=== PATIENT | female | born 1940 | race Caucasian/White ===

== ENCOUNTER 2023-04-25 16:06 | Emergency (ER) | payer MEDICARE, BC, SELFPAY ==
--- NOTE | ~2023-04-25 | XR_ITS ---
EXAMINATION: XR chest 2V DATE: 04/25/2023 17:39 INDICATION: Cough TECHNIQUE: PA and lateral views of the chest were obtained. COMPARISON: None FINDINGS: The lungs are clear with no focal airspace opacities, pulmonary edema, pleural effusion or pneumothor ax. The cardiomediastinal silhouette is normal. Mild thoracolumbar dextroscoliosis with partially vis ualized lumbar levorotoscoliosis. Mild to moderate thoracic and severe lumbar spondylosis. IMPRESSION: 1. No acute cardiopulmonary disease. Reviewed, dictated and finalized at location A. ED WIRE MACHINE OPERATOR
--- NOTE | ~2023-04-25 | CT_ITS ---
EXAMINATION: CT brain wo con DATE: 04/25/2023 17:36 INDICATION: Headache. Hypertension. TECHNIQUE: Computed tomography (CT) of the head was performed without intravenous contrast. Sagittal and coronal reconstructions were performed. The mA was adjusted according to patient size. Iterative reconstruction technique was employed. The dose-length product was 605.33 mGy-cm. COMPARISON: None FINDINGS: No acute intracranial hemorrhage, acute infarction or abnormal extra axial fluid collection. There is mild scattered white matter hypoattenuation consistent with chronic small vessel ischemic disease. V entricles are normal and symmetric. No mass/mass effect. Intracranial calcified cerebral atherosclero sis is noted. Changes of bilateral intraocular lens replacement. The orbits, paranasal sinuses and ma stoid air cells are normal. IMPRESSION: 1. No acute intracranial process. 2. Mild scattered white matter hypoattenuation consistent with chronic small vessel ischemic disease. Reviewed, dictated and finalized at location A. INFRASTRUCTURE PROJECT MANAGER IMPRESSION: 1. No acute intracranial process. 2. Mild scattered white matter hypoattenuation consistent with chronic small ve ssel ischemic disease.
[2023-04-25 16:16] VITALS: BP 178/69; PULSE 77; RESP 18; TEMP 36.4; O2SAT 100
--- NOTE | 2023-04-25 17:21 | ECG_ITS ---
Measurements Intervals [place] Rate: 59 P: 46 [place]: 197 QRS: -25 QRSD: 86 T: 16 QT: 420 QTc: 418 Interpretive Statements SINUS BRADYCARDIA BORDERLINE LEFT AXIS DEVIATION [QRS AXIS < -20] BORDERLINE ECG NO PREVIOUS ECG AVAILABLE FOR COMPARISON Electronically Signed On 04-26-2023 13:54:55 PURLER by Miller Wilson M.D.
--- NOTE | 2023-04-25 17:27 | ED.RECABL ---
HPI - Recheck/Abnormal Lab/Rx General Chief Complaint: Recheck/Abnormal Lab/Rx Stated Complaint: Bp elevated with sore throat Time Seen by Provider: 04/25/23 17:06 History of Present Illness HPI narrative: 83-year-old female with a history of hypertension and hyperlipidemia reports for evaluation from urgent care for elevated blood pressure. Patient was seen in urgent care today for a frontal headache, sore throat, nasal congestion and mild cough for the past 2 days. She tested negative for COVID and strep was sent to the emergency department when her blood pressure was found to be 175 systolic, then 190 systolic on recheck. The patient states she takes amlodipine her blood pressure has been taking it as prescribed. Her PCP, Dorothy Ivey, manages her BP. The patient denies chest pain, shortness of breath, abdominal pain, nausea, vomiting, diarrhea, Dysuria or hematuria. She does report a low-grade fever of 100? at home and tenderness over her maxillary sinuses. Patient states she normally does not get headaches this is abnormal for her. Denies vision changes, syncope, head injury or trauma, focal numbness or weakness. She has been taking Tylenol and ibuprofen with improvement in symptoms. Related Data Home Medications Medication Instructions Recorded Confirmed alendronate 70 mg tablet mg PO 04/25/23 04/25/23 amlodipine 10 mg-benazepril 20 mg cap 04/25/23 capsule fenofibrate 160 mg tablet mg 04/25/23 fluticasone propionate 50 intranasal 04/25/23 mcg/actuation nasal spray,suspension simvastatin 40 mg tablet mg 04/25/23 Allergies Allergy/AdvReac Type Severity Reaction Status Date / Time Sulfa (Sulfonamide Allergy Rash Verified 04/25/23 18:56 Antibiotics) thimerosal Allergy Rash Verified 04/25/23 18:55 Review of Systems Review of Systems: CONSTITUTIONAL: See HPI EYES: Denies visual changes, redness, or discharge. ENT: see HPI CARDIOVASCULAR: Denies chest pain, palpitations, or edema. RESPIRATORY: see HPI GASTROINTESTINAL: Denies abdominal pain, nausea, vomiting, or diarrhea. GENITOURINARY: Denies dysuria or hematuria. SKIN: Denies rash or itching. MUSCULOSKELETAL: Denies back pain, joint pain, or myalgia. NEUROLOGIC: see HPI PSYCHIATRIC: Denies anxiety or depression. Exam Narrative: GENERAL: Well-appearing, well-nourished, and in no acute distress. Patient resting comfortably in exam bed. She is pleasant and conversational. HEAD: Normocephalic, atraumatic. EYES: PERRLA and EOMI. ENT: Nares clear, no rhinorrhea or epistaxis. Mucous membranes moist. Bilateral TMs without erythema or bulging. normal canals. Mild Tenderness over the maxillary sinuses. Posterior pharynx without erythema. No tonsillar hypertrophy. Uvula is midline. NECK: Supple. CHEST: Clear to auscultation. No respiratory distress. HEART: Regular rate and rhythm. No murmur heard. Normal peripheral pulses. ABDOMEN: Soft, nontender, nondistended, normal active bowel sounds. EXTREMITIES: Normal range of motion. No edema. SKIN: Warm, dry, no rash. NEURO: No focal deficits. Alert and oriented x3. cranial nerves 2-12 intact. Strength 5/5 in BUE and BLE. Sensation intact throughout. Normal [id number]. No pronator drift. Course Vital Signs Vital signs: Vital Signs Temperature 97.6 F 04/25/23 16:16 Pulse Rate 77 04/25/23 16:16 Respiratory Rate 18 04/25/23 16:16 Blood Pressure 178/69 H 04/25/23 16:16 Pulse Oximetry 100 04/25/23 16:16 Oxygen Delivery Room Air 04/25/23 16:16 Temperature 97.6 F 04/25/23 16:16 Pulse Rate 77 04/25/23 16:16 Respiratory Rate 18 04/25/23 16:16 Blood Pressure 178/69 H 04/25/23 16:16 Pulse Oximetry 100 04/25/23 16:16 Oxygen Delivery Room Air 04/25/23 16:16 MDM - Recheck/Abnormal Lab/Rx MDM Narrative Medical decision making narrative: 83-year-old female with history of hypertension and hyperlipidemia reports for evaluat
[2023-04-25] MEDS: KETOROLAC 15 MG/ML VIAL (*BKC) IV PUSH (18:05)
[2023-04-25] MEDS: diphenhydrAMINE HCl INJ 50 MG/ML VIAL 12.5 MG IV PUSH (18:08)
[2023-04-25] MEDS: PROCHLORPERAZINE EDISYLATE 10 MG/2 ML VIAL IV PUSH (18:11)
[2023-04-25 18:20] LABS: Basophils Percent Auto 0.4 % (0.2-1.2); Eosinophils Absolute Auto 0.2 K/mm3 (0-0.3); Eosinophils Percent Auto 3.3 % (0-4.4); Hematocrit 38.1 % (37.0-47.0); Hemoglobin 12.7 g/dL (12.0-15.0); Immature Granulocyte Absolute 0.01 K/mm3 (0.00-0.031); Immature Granulocyte Percent A 0.2 % (0-0.5); Lymphocytes Absolute Auto 0.91 K/mm3 (0.9-3.2); Mean Corpuscular HGB Conc 33.3 g/dl (32-36); Mean Corpuscular Hemoglobin 29.9 pg (26-34); Mean Corpuscular Volume 89.6 fl (80-100); Mean Platelet Volume 9.2 fl (7.4-10.4); Monocytes Absolute Auto 0.9 K/mm3 (0.1-0.6); Monocytes Percent Auto 15.8 % (2.6-8.5); Neutrophils Absolute Auto 3.7 K/mm3 (1.3-6.7); Neutrophils Percent Auto 64.3 % (45.5-73.1); Platelet Count Result 285 k/mm3 (150-375); Red Blood Count 4.25 M/mm3 (4.2-5.4); Red Cell Distribution Width 15.9 % (11.5-14.5); White Blood Count 5.7 K/mm3 (4.5-10.0)
[2023-04-25 18:31] LABS: Alanine Aminotransferase 19 U/L (6-35); Albumin Level 4.7 g/dL (3.5-5.1); Alkaline Phosphatase 43 U/L (38-126); Anion Gap 9 mmol/L (8-16); Aspartate Amino Transferase 37 U/L (14-36); Bilirubin,Total 0.5 mg/dL (0.2-1.3); Blood Urea Nitrogen 18 mg/dL (7-17); Calcium 10.2 mg/dL (8.4-10.2); Carbon Dioxide 25 mmol/L (22-30); Chloride 107 mmol/L (98-107); Estimated CRCL calculation 43 ml/min; Estimated Glomerular Filt Rate > 60; Glucose 98 mg/dL (65-110); Potassium 3.9 mmol/L (3.4-5.0); Sodium 141 mmol/L (137-145)
[2023-04-25 19:25] LABS: Influenza A QL RT-PCR Negative (Negative); Influenza B QL RT-PCR Negative (Negative); RSV RNA, RT-PCR Negative (Negative); SARS-CoV-2 RNA PCR Positive (Negative)
[2023-04-25 19:30] LABS: Appearance Urine Clear (Clear); Bacteria Urine None Seen /hpf; Bilirubin Urine Negative (Negative); Blood Urine Negative (Negative); Color Urine Yellow (Yellow); Glucose Urine UA Negative (Negative); Ketones Urine Negative (Negative); Leukocyte Esterase Ur 1+ LEU/UL (Negative); Need Manual Microscopic Reviewed; Nitrate Urine Negative (Negative); Non Pathogenic Casts 0-2; Protein Urine Negative (Negative); RBC Urine 0-2 /hpf (0-2); Specific Grav Ur 1.007 (1.001-1.035); Squamous Epithelial Cell Urine None seen /hpf (Few); Urobilinogen Urine 0.2 mg/dL (<2.0); WBC Urine 0-5 /hpf
[2023-04-25 19:31] LABS: Add Urine Microscopic? YES
[2023-04-25 19:50] VITALS: BP 150/80; PULSE 69; RESP 15; TEMP 36.6; O2SAT 99
== END 2023-04-25 19:52 | disposition home or self-care (01) ==
PROVIDERS: Emergency Provider Physician Assistant; PCP Family Medicine
DX: U07.1 COVID-19 (principal); I10 Essential (primary) hypertension; E78.5 Hyperlipidemia, unspecified; G44.209 Tension-type headache, unspecified, not intractable; R00.1 Bradycardia, unspecified; R94.31 Abnormal electrocardiogram [ECG] [EKG]
CPT/HCPCS: 36415; 70450; 71046; 80053; 81001; 85025; 87637; 93005; 96374; 96375; 99284; J0780; J1200; J1885

== ENCOUNTER 2024-08-24 10:54 | Outpatient (CLI) | payer MEDICARE, BC, SELFPAY ==
[2024-08-24 11:28] LABS: Basophils Absolute Auto 0.1 K/mm3 (0.0-0.1); Basophils Percent Auto 0.9 % (0.2-1.2); Eosinophils Absolute Auto 0.1 K/mm3 (0-0.3); Eosinophils Percent Auto 1.9 % (0-4.4); Hematocrit 38.1 % (37.0-47.0); Hemoglobin 12.2 g/dL (12.0-15.0); Immature Granulocyte Absolute 0.01 K/mm3 (0.00-0.031); Immature Granulocyte Percent A 0.2 % (0-0.5); Lymphocytes Absolute Auto 1.07 K/mm3 (0.9-3.2); Lymphocytes Percent Auto 18.6 % (18.3-44.2); Mean Corpuscular Hemoglobin 30.4 pg (26-34); Mean Platelet Volume 9.4 fl (7.4-10.4); Monocytes Absolute Auto 0.7 K/mm3 (0.1-0.6); Monocytes Percent Auto 11.3 % (2.6-8.5); Neutrophils Absolute Auto 3.9 K/mm3 (1.3-6.7); Neutrophils Percent Auto 67.1 % (45.5-73.1); Platelet Count Result 272 k/mm3 (150-375); Red Blood Count 4.01 M/mm3 (4.2-5.4); Red Cell Distribution Width 14.1 % (11.5-14.5); White Blood Count 5.8 K/mm3 (4.5-10.0)
[2024-08-24 11:42] LABS: Hemoglobin A1C 5.2 % (<5.7)
[2024-08-24 11:43] LABS: Alanine Aminotransferase 18 U/L (6-35); Albumin Level 4.5 g/dL (3.5-5.1); Alkaline Phosphatase 34 U/L (38-126); Anion Gap 8 mmol/L (4-12); Aspartate Amino Transferase 28 U/L (14-36); Bilirubin,Total 0.4 mg/dL (0.2-1.3); Blood Urea Nitrogen 20 mg/dL (7-17); Calcium 9.6 mg/dL (8.4-10.2); Carbon Dioxide 28 mmol/L (22-30); Chloride 105 mmol/L (98-107); Cholesterol 134 mg/dL (0-200); Estimated Glomerular Filt Rate > 60; Glucose 105 mg/dL (65-110); HDL Direct 58 mg/dL; Potassium 3.9 mmol/L (3.4-5.0); Sodium 141 mmol/L (137-145); Triglycerides 148 mg/dL (<150)
[2024-08-24 11:55] LABS: LDL Cholesterol Direct 49 mg/dL
[2024-08-24 11:58] LABS: Vitamin D 25 Hydroxy 50.9 ng/mL
--- OUTSIDE RECORDS SUMMARY | 2024-08-24 12:33 | XMS_ITS | Referral Summary ---
Author Organization [facility] [address] [place] [address] Care Team Providers Care Welding Machine Setter Name Role Phone Leyla Montanez NP Primary Care Provider [phone] Encounters Date Type Department Care Team Description 07/20/2024 8:30 AM CDT Office Visit [facility] Card[facility] [address] [place] [address] Shara Ledesma MD Nonrheumatic aortic valve stenosis (Primary Dx); Primary hypertension; Mixed hyperlipidemia from Last 3 Months Allergies Active Allergy Reactions Criticality Noted Date Comments Celecoxib Hives Medium 12/13/2017 Sulfa (Sulfonamide Antibiotics) Unknown Medium Thimerosal Unknown Medium Medications ascorbic acid, vitamin C, 500 mg capsule Take by mouth. Acti ve vitamin b complex tablet Take by mouth. Active fenofibrate (TRIGLIDE) 160 mg tablet 8 Active flaxseed oil oil Take by mouth. Activ e fluticasone propionate (FLOVENT HFA) 44 mcg/actuation inhaler Administer into each nostril. Active simvastatin (ZOCOR) 40 mg tablet 8 Active vitamins A,C,E-zinc-srinivasan er (ICAPS) 14,320-226-200 kelm-qa-htvz capsule Take by mouth. 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 Social History Tobacco Use Types Packs/Day Years Used Date Smoking Tobacco: Former Smokeless Tobacco: Never Alcohol Use Standard Drinks/Week Comments No 0 (1 standard drink = 0.6 oz pur e alcohol) Comments Unknown Sex and Gender Information Value Date Recorded Sex Assigned at Not on file Legal Sex Female 12:22 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 Gender Identity Not on file Sexual Orientation Not on file Last Filed Vital Signs Vital Sign Reading Time Taken Comments Blood Pressure 134/72 07/20/2024 8:21 AM CDT Pulse 67 07/20/2024 8:21 AM CDT Temperature 36.5 C (97.7 F) 05/16/2020 8:08 AM 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 Respiratory Rate 16 05/02/2018 8:24 AM 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 Oxygen Saturation 98% 07/20/2024 8:21 AM CDT Inhaled Oxygen Concentration - - Weight 63.1 kg (139 lb 3.2 oz) 07/20/2024 8:21 A M CDT Height 167.6 cm (5' 6 ) 07/20/2024 8:21 AM CDT Body Mass Index 22.47 07/20/2024 8:21 AM CDT Plan of Treatment Not on file Insurance MEDICARE [facility] MEDICARE [facility] Care Teams Welding Machine Setter Relationship Specialty Start Date End Date Leyla Montanez NP [address] [place] [address] PCP - General Family Medicine 07/20/24
--- OUTSIDE RECORDS SUMMARY | 2024-08-24 12:33 | XMS_ITS | Encounter Summary ---
Author Organization [facility] Care Team Providers Care Chief Resource Officer Name Role Phone Merry Walker MD Primary Care Provide r Dorothy Ivey MD Primary Care Provider + Leyla Montanez NP Primary Care Provider [phone] Encounter Details Date Type Department Care Team (Latest Contact Info) Description 01/27/2018 Orders Only [facility] ProviderKeiry MD [address] [place] [address] Social History Tobacco Use Types Packs/Day Years Used Date Smoking Tobacco: Former Comments Unknown Sex and Gender Information Value Date Recorded Sex Assigned at Not on file Legal Sex Female 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 us Historical Provider Final Res ult documented in this encounter Visit Diagnoses Not on filedocumented in this encounter Care Teams Chief Resource Officer Relationship Specialty Start Date End Date Merry Walker MD [address] [place] [address] PCP - General 09/04/16 05/24/19 Dorothy Ivey MD [address] [place] [address] PCP - General Family Medicine 05/25/19 07/19/24 Leyla Montanez NP [address] [place] [address] [place] [address] PCP - General Family Medicine 07/20/24 documented as of this encounter
--- OUTSIDE RECORDS SUMMARY | 2024-08-24 12:33 | XMS_ITS | Clinical Summary ---
Author Organization [facility] Address [address] [address] Phone Care Team Providers Care Car Rental Clerk Name Role Phone Merry Walker MD Primary Care Provide r Allergies Active Allergy Reactions Criticality Noted Date Comments Celecoxib Hives 12/13/2017 Sulfa Antibiotics Hives 12/13/2017 Thimerosal (Thiomersal) Other (see Comments) Swelling and watery eyes Medications Amlodipine Besy-Benazepril HCl 10-20 MG Capsule Take 1 Cap by mouth daily. 10/16/2017 Active fenofibrate 160 MG Tablet Take 160 mg by mouth. 10/16/2017 Active simvastatin (ZOCOR) 40 MG Tablet 10/16/2017 Active Fluticasone Propionate (FLONASE NA) by Nasal route. Active B Complex Vitamins (B COMPLEX PO) Take by mouth. Active Ascorbic Acid (VITAMIN C PO) Take by mouth. Active Flaxseed, Linseed, (FLAX SEED OIL PO) Take by mouth. Active Multiple Vitamins-Mineral s (ICAPS AREDS 2 PO) Take by mouth. Active Family History Medical History Relation Name Comments Cancer Father colon Heart Attack Father Stroke Mother Cancer Paternal Aunt breast Relation Name Status Comments Father Mother Paternal Aunt Social History Tobacco Use Types Packs/Day Years Used Date Smoking Tobacco: Never Smokeless Tobacco: Never Alcohol Use Standard Drinks/Week Comments Yes 0 (1 standard drink = 0.6 oz pur e alcohol) rarely Comments Unknown Sex and Gender Information Value Date Recorded Sex Assigned at Not on file Legal Sex Female 12:39 AM CDT Gender Identity Not on file Sexual Orientation Not on file Last Filed Vital Signs Vital Sign Reading Time Taken Comments Blood Pressure 119/81 01/27/2018 6:35 AM CDT Pulse 64 01/27/2018 5:21 AM CDT Temperature 36 C (96.8 F) 01/27/2018 6:35 AM CDT Respiratory Rate 16 01/27/2018 6:35 AM CDT Oxygen Saturation 95% 01/27/2018 6:35 AM CDT Inhaled Oxygen Concentration - - Weight 68.9 kg (152 lb) 01/27/2018 5:21 AM CDT Height 167.6 cm (5' 6 ) 01/27/2018 5:21 AM CDT Body Mass Index 24.53 01/27/2018 5:21 AM CDT Plan of Treatment Health Maintenance Due Date Last Done Comments DEXA Bone Density 1940 Hepatitis C Virus (HCV) Screening 1940 TdaP Immunization 1940 Pneumococcal Immunization (5 0+ years) (1 of 1 - PCV) 02/26/1992 Zoster Immunization (1 of 2) 02/26/1992 Respiratory Syncytial Virus (RSV) Immunization (Adult) (1 - 1-dose 75+ series) 2017 Influenza Immunization (#1) 2024 SARS-COV-2 Immunization ( - season) 2024 Hepatitis B Immunization Aged Out No longer eligible based on patient's age to complete this topic Meningococcal Immunization (ACWY) Aged Out No longer eligible based on patient's age to complete this topic Rotavirus Immunization Aged Out No lo nger eligible based on patient's age to complete this topic Insurance MEDICARE [facility] Care Teams Car Rental Clerk Relationship Specialty Start Date End Date Merry Walker MD [address] [address] PCP - General Family Medicine 12/10/17
--- OUTSIDE RECORDS SUMMARY | 2024-08-24 12:33 | XMS_ITS | Encounter Summary ---
Author Organization [facility] Care Team Providers Care Barkeep Name Role Phone Merry Walker MD Primary Care Provide r Dorothy Ivey MD Primary Care Provider + Leyla Montanez NP Primary Care Provider [phone] Encounter Details Date Type Department Care Team (Latest Contact Info) Description 12/03/2017 Orders Only [facility]INCON[facility] Provider, MD Keiry [address] [place] [address] Social History Tobacco Use Types Packs/Day Years Used Date Smoking Tobacco: Former Comments Unknown Sex and Gender Information Value Date Recorded Sex Assigned at Not on file Legal Sex Female 12:22 AM ADVISOR 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 us Historical Provider Final Res ult documented in this encounter Visit Diagnoses Not on filedocumented in this encounter Care Teams Barkeep Relationship Specialty Start Date End Date Merry Walker MD [address] [place] [address] PCP - General 09/04/16 05/24/19 Dorothy Ivey MD [address] [place] [address] PCP - General Family Medicine 05/25/19 07/19/24 Leyla Montanez NP [address] [place] [address] [place] [address] PCP - General Family Medicine 07/20/24 documented as of this encounter
--- OUTSIDE RECORDS SUMMARY | 2024-08-24 12:33 | XMS_ITS | Data Portability ---
Author Organization [place] - [facility] [employer], Main Office Address [address] [place] [address] Care Team Providers Care Neck Band Maker Name Role Phone RAYMON IVEY Primary Care Provider RAYMON IVEY Referring Provider [phone] Assessment No assessment recorded. Plan of Treatment Reminders Order Date Submit Date Provider Last Modified By Organization Details Last Modified Time Details Appointments Follow Up 30 2024 01:00P Abdulkadir Montanez NP Not available Not available Not available Lab HbA1c (hemoglob in A1c), blood [address] [place] [address] (Lab), [address] [place] [address], [id number], 08/20/2024 08:40:02 vitamin D, 25-hydrox y, total, serum [address] [place] [address] (Lab), [address] [place] [address], [id number], 08/20/2024 08:40:01 CBC w/ auto diff [address] [place] [address] (Lab), [address] [place] [address], [address], 08/20/2024 08:40:02 lipid panel, serum [address] [place] [address] (Lab), [address] [place] [address], [address], 08/20/2024 08:40:01 hepatic function panel, serum [address] [place] [address] (Lab), [address] [place] [address], [address], 08/20/2024 08:40:02 CMP, serum or plasma 2024 025 [facility] (Lab), [address], [place], [address], 08/20/2024 08:40:02 glycohemo globin, total, blood [address] (Lab), [address] [place], [address], 03/17/2024 08:19:34 CMP, serum or plasma [address] (Lab), [address] [place], [address], 03/17/2024 08:19:34 CBC w/ auto diff [address] (Lab), [address] [place], [address], 03/17/2024 08:19:34 vitamin D3, 25-hydrox y, serum 2023 024 [facility] (Lab), [address] [place], [address], 07/15/2023 21:20:13 CBC w/ auto diff 2023 024 [facility] (Lab), [address] [place], [address], 07/15/2023 19:37:15 BMP, serum or plasma 2023 024 [facility] (Lab), [address] [place], [address], 07/15/2023 20:47:07 lipid panel, serum 2023 024 [facility] (Lab), [address] [place], [address], 07/15/2023 20:47:11 hepatic function panel, serum 2023 024 [facility] (Lab), [address] [place], [address], 07/15/2023 20:47:16 Referral orthopedi c surgeon referral - Please call patient to schedule an appointme nt. Thank you. 2023 024 [email or web address] [facility], [address], [place], [address], 05/11/2024 13:10:25 physical therapist referral - right shoulder/ arm pain, limited rom/stren gth Please call pt to schedule [address] [facility], [address], [place], [address], 06/05/2024 08:30:47 Procedures None recorded. Surgeries None recorded. Imaging None recorded. Medication Orders amlodipin e 10 mg-benaze pril 40 mg capsule 2024 025 [email or web address] [facility] [address], [place], [address], 08/03/2024 15:24:44 triamcino lone acetonide 0.1 % topical cream 2023 024 ABILIO [facility] [address], [place], [address], 03/10/2024 16:19:31 prednison e 20 mg tablet 2023 024 [email or web address] [facility] [address], [address], 08/03/2024 14:58:43 Patient TargetsNo targets recorded. Patient Instructions Encounter Date Encounter Id Patient Instructions Last Modified By Organization Details Last Modified Time 08/03/2024 [id number] dementia rating scale-2* ABILIO Not available 08/04/2024 10:24:24 multi-dimensiona l health assessment questionnaire* ABILIO Not available 08/04/2024 10:24:30 care plan* [email or web address] Not available 07/12 15:24:40 advance directives: care instructions [email or web address] Not available 08/03/2024 15:24:39 advance care planning: care instructions Not available 08/03/2024 15:24:39 [place] Advance Directives [email or web address] Not available 08/03/2024 15:24:39 Reason for Referral Orthopedic Surgeon Referral for Pain of right shoulder joint chronic shoulder pain Please call patient to schedule an appointment. Thank you. Referring Physician: Sloan Villa [facility] Kaleb, Encounter Date: 03/10/2024 Physical Therapist Referral for Pain of right shoulder joint right shoulder/arm pain, limited rom/strength right shoulder/arm pain, limited rom/strength Please call pt to schedule Referring Physician: Sloan Villa [facility] Kaleb, Encounter Date: 03/10/2024 Results Created Date Observation Date Name Description Value Unit Range Abnormal Flag Note LastModifiedBy Organization Detail LastModifiedTime 07/15/19 24 07/15/2023 CBC/C OMPLE TE BLD COUNT W/DIF F white blood cells 8.1 x10'3 /uL 4.2-10 .8 Not Available [facility] (Lab) [address] [place], [address], 07/15/2023 19:37:15 07/15/19 24 07/15/2023 CBC/C OMPLE TE BLD COUNT W/DIF F red blood cells 4.30 x10'6 /uL 3.80-5 .20 Not Available [facility] (Lab) [address] [place], [address], 07/15/2023 19:37:15 07/15/19 24 07/15/2023 CBC/C OMPLE TE BLD COUNT W/DIF F hemoglobin 13.4 g/dL 12.0-1 5.6 Not Available [facility] (Lab) [address] [place], [address], 07/15/2023 19:37:15 07/15/19 24 07/15/2023 CBC/C OMPLE TE BLD COUNT W/DIF F hematocrit 40.4 % 35.7-4 5.7 Not Available [facility] (Lab) [address] [place], [address], 07/15/2023 19:37:15 07/15/19 24 07/15/2023 CBC/C OMPLE TE BLD COUNT W/DIF F mean red cell volume 94.0 fL 82.0-9 9.0 Not Available [facility] (Lab) [address] [place], [address], 07/15/2023 19:37:15 07/15/19 24 07/15/2023 CBC/C OMPLE TE BLD COUNT W/DIF F mean red cell hemoglobin 31.2 pg 27.0-3 3.0 Not Available [facility] (Lab) [address] [place], [address], 07/15/2023 19:37:15 07/15/19 24 07/15/2023 CBC/C OMPLE TE BLD COUNT W/DIF F mean RBC HGB concentratio n 33.2 g/dL 31.0-3 6.0 Not Available [facility] (Lab) [address] [place], [address], 07/15/2023 19:37:15 07/15/19 24 07/15/2023 CBC/C OMPLE TE BLD COUNT W/DIF F red cell distribution width 15.0 % 11.8-1 5.5 Not Available [facility] (Lab) [address] [place], [address], 07/15/2023 19:37:15 07/15/19 24 07/15/2023 CBC/C OMPLE TE BLD COUNT W/DIF F platelets 303 x10'3 /uL 150-40 0 Not Available [facility] (Lab) [address] [place], [address], 07/15/2023 19:37:15 07/15/19 24 07/15/2023 CBC/C OMPLE TE BLD COUNT W/DIF F mean platelet volume 10.4 fL 9.0-12 .4 Not Available [facility] (Lab) [address] [place], [address], 07/15/2023 19:37:15 07/15/19 24 07/15/2023 CBC/C OMPLE TE BLD COUNT W/DIF F neutrophils 72.1 % 39.0-7 2.0 high Not Available [facility] (Lab) [address] [place], [address], 07/15/2023 19:37:15 07/15/19 24 07/15/2023 CBC/C OMPLE TE BLD COUNT W/DIF F lymphocytes 16.4 % 16.0-4 7.0 Not Available [facility] (Lab) [address] [place], [address], 07/15/2023 19:37:15 07/15/19 24 07/15/2023 CBC/C OMPLE TE BLD COUNT W/DIF F monocytes 9.4 % 5.0-12 .0 Not Available [facility] (Lab) [address] [place], [address], 07/15/2023 19:37:15 07/15/19 24 07/15/2023 CBC/C OMPLE TE BLD COUNT W/DIF F eosinophils 1.5 % 1.0-7. 0 Not Available [facility] (Lab) [address] [place], [address], 07/15/2023 19:37:15 07/15/19 24 07/15/2023 CBC/C OMPLE TE BLD COUNT W/DIF F basophils 0.4 % 0.0-2. 0 Not Available [facility] (Lab) [address] [place], [address], 07/15/2023 19:37:15 07/15/19 24 07/15/2023 CBC/C OMPLE TE BLD COUNT W/DIF F immature granulocytes 0.2 % 0.00-0 .50 Not Available [facility] (Lab) [address] [place], [address], 07/15/2023 19:37:15 07/15/19 24 07/15/2023 CBC/C OMPLE TE BLD COUNT W/DIF F neutrophils, absolute count 5.81 x10'3 /uL 1.5-8. 0 Not Available [facility] (Lab) [address] [place], [address], 07/15/2023 19:37:15 07/15/19 24 07/15/2023 CBC/C OMPLE TE BLD COUNT W/DIF F lymphocytes, absolute count 1.32 x10'3 /uL 1.07-3 .43 Not Available [facility] (Lab) [address] [place], [address], 07/15/2023 19:37:15 07/15/19 24 07/15/2023 CBC/C OMPLE TE BLD COUNT W/DIF F monocytes, absolute count 0.76 x10'3 /uL 0.29-0 .99 Not Available [facility] (Lab) [address] [place], [address], 07/15/2023 19:37:15 07/15/19 24 07/15/2023 CBC/C OMPLE TE BLD COUNT W/DIF F eosinophils, absolute count 0.12 x10'3 /uL 0.02-0 .53 Not Available [facility] (Lab) [address] [place], [address], 07/15/2023 19:37:15 07/15/19 24 07/15/2023 CBC/C OMPLE TE BLD COUNT W/DIF F basophils, absolute count 0.03 x10'3 /uL 0.01-0 .08 Not Available [facility] (Lab) [address] [place], [address], 07/15/2023 19:37:15 07/15/19 24 07/15/2023 CBC/C OMPLE TE BLD COUNT W/DIF F immature granulocytes ,absolute 0.02 x10'3 /uL 0.00-0 .05 Not Available [facility] (Lab) [address] [place], [address], 07/15/2023 19:37:15 07/15/19 24 07/15/2023 CBC/C OMPLE TE BLD COUNT W/DIF F nucleated red blood cells 0.0 % -0 Not Available [facility] (Lab) [address] [place], [address], 07/15/2023 19:37:15 07/15/19 24 07/15/2023 CBC/C OMPLE TE BLD COUNT W/DIF F NRBC# 0.00 x10'3 /uL Not Available [facility] (Lab) [address] [place], [address], 07/15/2023 19:37:15 07/15/19 24 07/15/2023 BASIC METAB OLIC PANEL sodium 141 mmol/ L 137-14 5 Not Available [facility] (Lab) [address] [place], [address], 07/15/2023 20:47:07 07/15/19 24 07/15/2023 BASIC METAB OLIC PANEL potassium 3.9 mmol/ L 3.5-5. 1 Not Available [facility] (Lab) [address] [place], [address], 07/15/2023 20:47:07 07/15/19 24 07/15/2023 BASIC METAB OLIC PANEL chloride 106 mmol/ L 98-107 Not Available [facility] (Lab) [address] [place], [address], 07/15/2023 20:47:07 07/15/19 24 07/15/2023 BASIC METAB OLIC PANEL carbon dioxide 28 mmol/ L 22-30 Not Available [facility] (Lab) [address] [place], [address], 07/15/2023 20:47:07 07/15/19 24 07/15/2023 BASIC METAB OLIC PANEL anion gap 10.9 mmol/ L 14-22 low Not Available [facility] (Lab) [address] [place], [address], 07/15/2023 20:47:07 07/15/19 24 07/15/2023 BASIC METAB OLIC PANEL glucose 103 mg/dL 70-99 high Not Available [facility] (Lab) [address] [place], [address], 07/15/2023 20:47:07 07/15/19 24 07/15/2023 BASIC METAB OLIC PANEL BUN 19 mg/dL 8-19 Not Available [facility] (Lab) [address] [place], [address], 07/15/2023 20:47:07 07/15/19 24 07/15/2023 BASIC METAB OLIC PANEL creatinine 0.80 mg/dL 0.66-1 .25 Not Available [facility] (Lab) [address] [place], [address], 07/15/2023 20:47:07 07/15/19 24 07/15/2023 BASIC METAB OLIC PANEL GFR >60 Refer ence Range : [place] ge GFR Healt hy Adult : >60 mL/mi n/1.7 3 m2 Chron ic Kidne y Disea se: 15-60 mL/mi n/1.7 3 m2 Kidne y Failu re: <15/m L/min /1.73 m2 www.n iddk. nih.g ov The MDRD study equat ion has not been valid ated in child fabiola <18 years of age; pregn ant women ; the elder ly >85 years of age; or in some racia l or ethni c subgr oups, such as [employer]. Outsi de the valid ated jayme eters , estim ated GFR is less accur ate, requi ring clini patricia judgm ent on a case- by-ca se basis . Clini patricia inter preta tion for other races and ages must be made by the clini adriana. The MDRD study equat ion has not been valid ated for the evalu ation of serum creat inine relat ed to nutri america l statu s or medic ation usage . For perso ns <18 years of age, a pedia tric GFR calcu lator is avail able on the [facility] websi te: https ://raymundo w.david saeed.o rg/pr ofess ional s/kdo qi/gf r_cal culat or Not Available [facility] (Lab) [address] [place], [address], 07/15/2023 20:47:07 07/15/1907/15/2023 BASIC METAB OLIC PANEL calcium 10.4 mg/dL 8.4-10 .2 high Not Available [facility] (Lab) [address] [place], [address], 07/15/2023 20:47:07 07/15/19 24 07/15/2023 LIPID PANEL cholesterol 151 mg/dL 140-19 9 NIH MICHI NSUS RECOM MENDA TION FOR MARTY STERO L: ADULT CHILD LOW RISK: <200 <170 BORDE RLINE : <200- 239 ----- HIGH RISK: >240 >200 Not Available [facility] (Lab) [address] [place], [address], 07/15/2023 20:47:11 07/15/19 24 07/15/2023 LIPID PANEL triglyceride s 184 mg/dL 0-150 high NIH MICHI NSUS REPOR T RECOM MENDA TION FOR TRIGL YCERI STONE: ADULT CHILD LOW RISK: <150 ----- BODER LINE: 150-1 99 ----- HIGH RISK: >200 ----- Not Available [facility] (Lab) [address] [place], [address], 07/15/2023 20:47:11 07/15/19 24 07/15/2023 LIPID PANEL HDL cholesterol 57 mg/dL 40- Not Available [facility] (Lab) [address] [place], [address], 07/15/2023 20:47:11 07/15/19 24 07/15/2023 LIPID PANEL LDL cholesterol, calculated 57 mg/dL 0-130 NIH MICHI NSUS REPOR T RECOM MENDA TIONS FOR LDL: ADULT CHILD LOW RISK <130 <110 (OPTI MAL LDL) <100 ----- DYLON RLINE : 130-1 59 ----- HIGH RISK: >160 >130 A TRIGL YCERI DE RESUL T >400 INVAL IDATE S THE CALCU LATIO N FOR LDL FRACT IONAT ION - THE LDL RESUL T WILL NOT BE REPOR TEE. Not Available [facility] (Lab) [address] [place], [address], 07/15/2023 20:47:11 07/15/19 24 07/15/2023 HEPAT IC/LI BARBIE PANEL alkaline phosphatase 38 U/L 38-126 Not Available [facility] (Lab) [address] [place], [address], 07/15/2023 20:47:16 07/15/19 24 07/15/2023 HEPAT IC/LI BARBIE PANEL alanine aminotransfe rase 16 U/L 0-35 Not Available [facility] (Lab) [address] [place], [address], 07/15/2023 20:47:16 07/15/19 24 07/15/2023 HEPAT IC/LI BARBIE PANEL aspartate aminotransfe rase 31 U/L 15-37 Not Available [facility] (Lab) [address] [place], [address], 07/15/2023 20:47:16 07/15/19 24 07/15/2023 HEPAT IC/LI BARBIE PANEL bilirubin, total 0.50 mg/dL 0.20-1 .30 Not Available [facility] (Lab) [address] [place], [address], 07/15/2023 20:47:16 07/15/19 24 07/15/2023 HEPAT IC/LI BARBIE PANEL bilirubin, conjugated (direct) 0.00 mg/dL 0.00-0 .30 Not Available [facility] (Lab) [address] [place], [address], 07/15/2023 20:47:16 07/15/19 24 07/15/2023 HEPAT IC/LI BARBIE PANEL biliurubin,u ncong. (indirect) 0.30 mg/dL 0.00-1 .1 Not Available [facility] (Lab) [address] [place], [address], 07/15/2023 20:47:16 07/15/19 24 07/15/2023 HEPAT IC/LI BARBIE PANEL total protein 7.4 g/dL 6.3-8. 2 Not Available [facility] (Lab) [address] [place], [address], 07/15/2023 20:47:16 07/15/19 24 07/15/2023 HEPAT IC/LI BARBIE PANEL albumin 4.6 g/dL 3.0-4. 4 high Not Available [facility] (Lab) [address] [place], [address], 07/15/2023 20:47:16 07/15/19 24 07/15/2023 HEPAT IC/LI BARBIE PANEL globulin 2.8 g/dL 2.6-4. 2 Not Available [facility] (Lab) [address] [place], [address], 07/15/2023 20:47:16 07/15/19 24 07/15/2023 HEPAT IC/LI BARBIE PANEL A/G ratio 1.6 ratio 1.0-2. 0 Not Available [facility] (Lab) [address] [place], [address], 07/15/2023 20:47:16 07/15/19 24 07/15/2023 VITAM IN D 25-HY DROXY [id number] 26.3 NG/mL 30-100 low Vitam in D Statu s: Defic ient: <20 ng/mL Insuf ficie nt: 20-29 ng/mL Suffi cient : 30-10 0 ng/mL Not Available [facility] (Lab) [address] [place], [address], 07/15/2023 21:20:13 07/19/19 24 07/22/2023 CALCI UM, IONIZ ED/LC calcium, ionized, serum 4.9 mg/dL 4.5-5. 6 Perfo rmed at: - [facility] [place] [address] Lab Direc tor: Michael rolon PhD, Phone : [phone] Not Available [facility] (Lab) [address] [place], [address], 07/22/2023 16:12:18 10/29/19 24 10/28/2023 XR, elbow , 3 or more view No observ ation record ed. [email or web address] [facility] [address], [place], [address], 10/30/2023 09:47:03 03/11/20 24 03/10/2024 MAMMO , scree yoly, digit al, bilat eral No observ ation record ed. [email or web address] [facility] [address], [place], [address], 03/11/2024 08:59:23 03/19/20 24 03/12/2024 DEXA No observ ation record ed. [email or web address] [facility] [address] [place], [address], 04/01/2024 21:52:47 03/19/20 24 03/12/2024 DEXA No observ ation record ed. [email or web address] [facility] [address] [place], [address], 03/28/2024 14:07:49 06/18/19 25 06/18/2024 XR, knee, 3 view No observ ation record ed. [facility] [address], [place], [address], 06/19/2024 09:19:49 Result Notes None recorded. 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 7418271634533 9103 Active 2020 Not Available [facility] 3 14:09:05 Pain of left shoulder joint 9739423523800 9109 Active 2021 Not Available [facility] 3 14:09:05 Localized swelling, mass and lump, upper limb Active 2021 Not Available [facility] 3 14:09:05 Retinal disorder 46086698 Active 2019 Not Available [facility] 3 14:09:05 Osteopenia 105381553 Active 2019 Not Available [facility] 3 14:09:05 Vitamin D deficiency 72735650 Active 2020 Not Available [facility] 3 14:09:05 Hypertensi ve disorder 43012998 Active 2018 Not Available [facility] 3 14:09:05 Mass of shoulder region 918678471 Active 2021 Not Available [facility] 3 14:09:05 Hyperlipid emia 56458401 Active 2018 Not Available [facility] 3 14:09:05 Aortic valve stenosis 41835350 Active 2019 Not Available [facility] 3 14:09:05 Pruritic rash 12001594 Active 2022 Not Available [facility] 3 14:09:05 Essential hypertensi on 81623698 Active 2022 Not Available [facility] 3 14:09:05 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 11382359 Active 2022 Not Available [facility] 3 14:09:05 Dysuria 82702896 Active 2022 Not Available [facility] 3 14:09:05 Low back pain 984568269 Active 2022 Not Available [facility] 3 14:09:05 Cellulitis of face 500119825 Active 2022 Not Available [facility] 3 14:09:05 Acute sinusitis 53369483 Active 2022 Raymon Ivey MD [address], [place], [address] , [employer] 3 16:42:26 Eruption 077162915 Active 2023 Raymon Ivey MD [address], [place], [address] , [employer] 4 11:39:12 Pain of right shoulder joint 7814646933131 9100 Active 2023 Raymon Ivey MD [address], [place], [address] , link [employer] [place] [employer] 4 13:00:54 Hypercalce beth 00366508 Active 2023 Raymon Ivey MD [address], [place], [address] , [place] [employer] 4 07:52:45 Hyperglyce beth 12550760 Active 2023 Sloan Allen [employer] [address], [place], [address] , [employer] 4 16:05:50 Generalize d rash 741624614 Active 2023 Sloan GUS VillaP[facility] [address], [place], [address] , [employer] 4 16:13:47 Pain of right knee joint 9965434020367 00 Active 2024 LeylaGUS Nugent[facility] [address], [place], [address] , [employer] 5 09:15:21 Problem Notes None recorded. Procedures Surgical History Date Name Laterality Status Provider Name and Address Organization Details Recorded Time 5 Medicare Wellness CPT Code, subsequent completed Esme Brennan MA [employer] 08/03/2024 14:52:56 4 Medicare Wellness CPT Code, subsequent completed Batool Suárez RN [place] [employer] 05/28/2023 11:04:08 extraction of cataract completed Not Available [facility] 07/11/2022 10:41:35 Imaging Results Imaging Date Name Status LastModified by Organiz ation Details LastModified Time 10/28/2023 XR, elbow, 3 or more view completed [email or web address] [facility] [address] [place] [address], [place], [address], 10/30/2023 09:47:03 03/10/2024 MAMMO, screening, digital, bilateral completed [email or web address] [facility] [address], [place], [address], 03/11/2024 08:59:23 03/12/2024 DEXA completed [email or web address] [facility] [address] [place], [address], 04/01/2024 21:52:47 03/12/2024 DEXA completed [email or web address] [facility] [address], [place], [address], 03/28/2024 14:07:49 06/18/2024 XR, knee, 3 view completed [facility] [address], [place], [address], 06/19/2024 09:19:49 Procedure Notes None recorded. Medical Equipment None Reported. Allergies Allergen ID Allergen Name Allergen Category Reaction Reaction Severity Criticality Documentation Date Start Date Code Code System Note Provider Name and Address Organization Details Recorded Time 42414 Substance with sulfonami de structure and antibacte rial mechanism of action (substanc e) medicatio n hives moderate Not available 07/11/2022 23943 8003 SNOMED Not Available [facility] 3 10:47:36 32738 Celebrex medicatio n Not available Not available Not available 07/11/2022 81975 7 RxNorm Not Available [facility] 3 10:47:36 Medications Name Sig Start Date Stop Date Status Note LastModified by Organization Details LastModified Time hydrocodone 5 mg-acetamin ophen 325 mg tablet TAKE 1 TABLET BY MOUTH EVERY 6 HOURS NEEDED FOR PAIN 05/16 completed Not Available Not Available Not Available bupivacaine HCl 0.5 % (5 mg/mL) injection solution Take 8 mg by injection route. 05/16 completed Not Available Not Available Not Available prednisone 20 mg tablet TAKE 2 TABLETS BY MOUTH EVERY DAY IN THE MORNING FOR 5 DAYS WITH FOOD 08/03 completed Not Available Not Available Not Available alendronate 70 mg tablet TAKE 1 TABLET BY MOUTH ONE TIME PER WEEK active Not Available Not Available No t Available clindamycin HCl 150 mg capsule TAKE 1 CAPSULE BY MOUTH EVERY 12 HOURS FOR 7 DAYS 05/28 completed Not Available Not Available Not Available triamcinolo ne acetonide 0.1 % topical cream APPLY A THIN LAYER TO THE AFFECTED AREA(S) BY TOPICAL ROUTE 2 TIMES PER DAY active Not Available Not Available No t Available simvastatin 40 mg tablet TAKE 1 TABLET BY MOUTH EVERY DAY active Not Available Not Available No t Available amoxicillin 875 mg tablet TAKE 1 TABLET BY MOUTH TWICE A DAY UNTIL ALL TABLETS ARE TAKEN 08/03 completed Not Available Not Available Not Available prednisolon e acetate 1 % eye drops,suspe nsion 05/30 completed Not Available Not Available Not Available Kenalog 10 mg/mL suspension for injection In office injection administe red by the provider 05/16 completed [facility]: 0003- 0494- 20 Not Available Not Available Not Available cephalexin 500 mg capsule 05/30 completed Not Available Not Available Not Available simvastatin 20 mg tablet Take 1 tablet every day by oral route. 09/01 completed Not Available Not Available Not Available erythromyci n 5 mg/gram (0.5 %) eye ointment 05/30 completed Not Available Not Available Not Available ergocalcife rol (vitamin D2) 1,250 mcg (50,000 unit) capsule 05/16 completed Not Available Not Available Not Available fluticasone propionate 50 mcg/actuati on nasal spray,suspe nsion SPRAY 2 SPRAYS INTO EACH NOSTRIL EVERY DAY active Not Available Not Available No t Available clotrimazol e 1 % topical cream PLEASE SEE ATTACHED FOR DETAILED DIRECTION S 08/03 completed Not Available Not Available Not Available amoxicillin 875 mg-potassiu m clavulanate 125 mg tablet 04/13 completed Not Available Not Available Not Available amlodipine 10 mg-benazepr il 20 mg capsule TAKE 1 CAPSULE BY MOUTH EVERY DAY 07/14 completed Not Available Not Available Not Available cyclobenzap rine 5 mg tablet TAKE 1 TABLET 3 TIMES A DAY BY ORAL ROUTE NEEDED. 05/28 completed Not Available Not Available Not Available nitrofurant oin monohydrate /macrocryst als 100 mg capsule TAKE 1 CAPSULE BY MOUTH EVERY 12 HOURS FOR 7 DAYS 05/28 completed Not Available Not Available Not Available fenofibrate 160 mg tablet TAKE 1 TABLET BY MOUTH EVERY DAY active Not Available Not Available No t Available amlodipine 10 mg-benazepr il 40 mg capsule TAKE 1 CAPSULE BY MOUTH EVERY DAY 2024 active Not Available Not Available Not Avai lable Shingrix (PF) 50 mcg/0.5 mL intramuscul ar suspension, kit 05/30 completed Not Available Not Available Not Available Flucelvax Quad (PF) 60 mcg (15 mcg x 4)/0.5 mL IM syringe TO BE ADMINISTE RED BY PHARMACIS T FOR IMMUNIZAT ION 05/30 completed Not Available Not Available Not Available Fluzone High-Dose Quad (PF) 240 mcg/0.7 mL IM syringe PHARMACY ADMINISTE RED 05/30 completed Not Available Not Available Not Available Vitals Date Recorded Body height Body mass index (BMI) Body weight Body temperature Heart rate Oxygen saturation Oxygen saturation in Arterial blood by Pulse oximetry Systolic blood pressure Diastolic blood pressure Provider Name and Address Organization Details Last Updated DateTime 4 167.64 cm 23.4 kg/m2 85823.8 9 g 97.1 [degF] 72 /min 98 % 98 % 160 mm[Hg] 82 mm[Hg] Batool Suárez RN [facility] [employer] 4 12:27:42 Date Recorded Body height Body mass index (BMI) Body weight Body temperature Heart rate Oxygen saturation Oxygen saturation in Arterial blood by Pulse oximetry Systolic blood pressure Diastolic blood pressure Provider Name and Address Organization Details Last Updated DateTime 4 167.64 cm 23.3 kg/m2 62169.1 g 98.2 [degF] 64 /min 97 % 97 % 140 mm[Hg] 67 mm[Hg] Maris Mcdowell MA [facility] [employer] 4 11:37:20 Date Recorded Body height Body mass index (BMI) Body weight Body temperature Heart rate Oxygen saturation Oxygen saturation in Arterial blood by Pulse oximetry Systolic blood pressure Diastolic blood pressure Systolic blood pressure Diastolic blood pressure Provider Name and Address Organization Details Last Updated DateTime 4 167.64 cm 23.1 kg/m2 02710.7 1 g 97.3 [degF] 72 /min 100 % 100 % 152 mm[Hg] 80 mm[Hg] 148 mm[Hg] 78 mm[Hg] Allison Acosta RN [facility] 4 16:23:38 Date Recorded Body height Body mass index (BMI) Body weight Body temperature Heart rate Oxygen saturation Oxygen saturation in Arterial blood by Pulse oximetry Pain severity - 0-10 verbal numeric rating [Score] - Reported Systolic blood pressure Diastolic blood pressure Provider Name and Address Organization Details Last Updated DateTime 5 167.64 cm 22.6 kg/m2 31597.9 3 g 98 [degF] 72 /min 98 % 98 % 2 124 mm[Hg] 60 mm[Hg] CAMMIE Sadler Karen MA [facility] 5 14:57:53 Social History Question Answer Notes LastModified by Organizat ion Details LastModified Time Tobacco Smoking Status Never Smoker Not Available [employer] 07/11/2022 10:41:26 Do You Have An Advance Directive? Yes Living Will MIGRATION.[id number] [id number] Information not available 07/11/2022 What Is Your Level Of Alcohol Consumption? Occasional Very Rare MIGRATION.69489 31044 Information not available 07/11/2022 Are You Blind Or Do You Have Difficulty Seeing? No MIGRATION.28496 64693 Information not available 07/11/2022 What Is Your Level Of Caffeine Consumption? Moderate Information not available 08/03/2024 In The 14 Days Before Symptom Onset, Have You Had Close Contact With A Laboratory-confi rmed COVID-19 While That Case Was Ill? No MIGRATION.21812 42431 Information not available 07/11/2022 In The 14 Days Before Symptom Onset, Have You Had Close Contact With A Person Who Is Under Investigation For COVID-19 While That Person Was Ill? No MIGRATION.37596 72885 Information not available 07/11/2022 Are You Currently Employed? No Retired Information not available 08/03/2024 Are You Deaf Or Do You Have Serious Difficulty Hearing? No MIGRATION.73228 78634 Information not available 07/11/2022 What Type Of Diet Are You Following? REGULAR MIGRATION.59931 48410 Information not available 07/11/2022 Have There Been Any Changes To Your Family Or Social Situation? No MIGRATION.85571 99115 Information not available 07/11/2022 Do You Use Insect Repellent Routinely? No MIGRATION.93134 99747 Information not available 07/11/2022 [facility] M[facility].91577 90476 Information not available 07/11/2022 What Was The Date Of Your Most Recent Tobacco Screening? 08/03/2024 Information not available 08/03/2024 What Is Your Relationship Status? MIGRATION.06172 09585 Information not available 07/11/2022 Do You Use Your Seat Belt Or Car Seat Routinely? Yes Information not available 08/03/2024 Do You Have Smoke And Carbon Monoxide Detectors In Your Home? Yes MIGRATION.20919 34776 Information not available 07/11/2022 Are You Passively Exposed To Smoke? No Information not available 08/03/2024 Are There Any Smokers In Your House? No Information not available 08/03/2024 Do You Participate In Social Media? No Information not available 08/03/2024 Do You Feel Stressed (tense, Restless, Nervous, Or Anxious, Or Unable To Sleep At Night)? [id number] Information not available 08/03/2024 Do You Use Any Illicit Or Recreational Drugs? No Information not available 08/03/2024 Do You Use Sunscreen Routinely? No MIGRATION.72809 97383 Information not available 07/11/2022 Has Tobacco Cessation Counseling Been Provided? No MIGRATION.95219 07645 Information not available 07/11/2022 Have You Recently Traveled Abroad? No MIGRATION.89546 75065 Information not available 07/11/2022 Are You Currently In School? No Information not available 08/03/2024 Do You Have Any Dietary Restrictions? No MIGRATION.25862 56702 Information not available 07/11/2022 Do You Or Have You Ever Used Any Other Forms Of Tobacco Or Nicotine? No MIGRATION.81858 37982 Information not available 07/11/2022 Sex: Unknown Functional Status Question Answer Note LastModified by Organizat ion Details LastModified Time Do you have difficulty walking or climbing stairs? No MIGRATION.217213 3760 Information not available 07/11/2022 Do you have transportation difficulties? No MIGRATION.189434 6023 Information not available 07/11/2022 Are you able to walk? [place] MIGRATION.692479 0118 Information not available 07/11/2022 Do you have difficulty doing errands alone? No MIGRATION.268977 3983 Information not available 07/11/2022 Are you able to care for yourself? Yes MIGRATION.802376 5550 Information not available 07/11/2022 Do you have difficulty dressing or bathing? No MIGRATION.625761 1872 Information not available 07/11/2022 What is your exercise level? Moderate Patient stated she goes to the [facility] 3 times per week. MIGRATION.846507 1835 Information not available 07/11/2022 Mental Status Question Answer Note LastModified by Organizat ion Details LastModified Time Do you have difficulty concentrating, remembering or making decisions? No MIGRATION.[id number] 5 Information not available 07/11/2022 Family History Relationship Description Onset Age of this Age Resolved Age Notes LastModified by Organization Details LastModified Time Father Family history of malignant neoplasm MIGRATION.668 [id number] Not available 07/11/2022 10:41:39 Father Heart disease MIGRATION.081 [id number] Not available 07/11/2022 10:41:39 Mother Hypertensive disorder MIGRATION.652 [id number] Not available 07/11/2022 10:41:39 Mother Family history of stroke MIGRATION.469 [id number] Not available 07/11/2022 10:41:39 Medical History Condition Response ARTHRITIS Y OSTEOPOROSIS Y HYPERTENSION Y Gynecological History Statement/Question Response How many live births 3 Date of Last Colonoscopy Most Recent Bone Density Date of LMP Date of Last Pap Smear Current Control Method Hysterectom y Most Recent Mammogram Obstetrics History GPAL:G 3 P 3 0 0 3 Type Value Multiple Births 0 Full Term 3 Induced 0 Spontaneous 0 Premature 0 Living 3 Ectopics 0 Total 3 Immunizations Vaccine Type Date Status Note Provider Nam e and Address Organization Details Recorded Time influenza, unspecified formulation 03/21/2023 completed JAIRON Cabral, [facility] [employer] 03/25/2023 11:27:51 SARS-COV-2 (COVID-19) vaccine, UNSPECIFIED 03/21/2023 completed JAIRON Cabral, [place] [employer] [facility] [employer] 03/25/2023 11:28:17 COVID-19, mRNA, LNP-S, PF, 50 mcg/0.5 mL dose 05/23/2022 completed JEREMÍAS Dumont, [employer] [facility] [employer] 02/13/2023 14:52:48 COVID-19, mRNA, LNP-S, PF, 100 mcg/0.5mL dose or 50 mcg/0.25mL dose 05/23/2022 completed JEREMÍAS Dumont, [facility] [employer] 02/13/2023 14:52:48 Influenza, adjuvanted, quadrivalent, PF 03/13/2022 completed Ligia Guevara CMA null, [place] [facility] 02/13/2023 14:52:48 COVID-19 IV Non-US Vaccine (COVAXIN) 06/17/2020 completed Ligia Guevara CMA null, [place] - [facility] 02/13/2023 14:52:48 COVID-19 IV Non-US Vaccine (COVAXIN) 04/02/2020 completed Ligia Guevara CMA null, [place] - [place] [facility] 02/13/2023 14:52:48 Past Encounters Encounter ID Performer Location Encounter Start Date Encounter Closed Date Diagnosis/Indication Diagnosis SNOMED-CT Code Diagnosis ICD10 Code Diagnosis Note [id number] [facility] [address] [place] [address] 04/27/2021 00:00:00 05/11/2021 10:57:59 [id number] [facility] [place] [address] [facility] [address] [place] [address] 05/30/2021 00:00:00 05/30/2021 11:01:48 [id number] [facility] [place] [address] [facility] [address] [place] [address] 06/16/2021 00:00:00 06/16/2021 10:27:10 [id number] [facility] [place] [address] [facility] [address] [place] [address] 09/05/2021 00:00:00 09/05/2021 15:36:11 [id number] [facility] [address] [place] [address] [address] [place] [address] 09/08/2021 00:00:00 09/08/2021 17:44:37 [id number] [facility] [address] [facility] [address] [place] [address] 05/16/2022 00:00:00 05/16/2022 14:36:54 [id number] TAMARA Rogers [facility] [address] [facility] [place] [address] 07/11/2022 14:37:24 07/12/2022 11:44:05 Pruritic rash 31088080 L28.2 Mainly on upper back, stomach and arms; worse on back right now.Has been on and off since before [place]. Very itchy.Osmani r scripts written for oral prednisone taper and triamcinol one cream.Advi sed to avoid scratching area, use on ly gentle, non-scente d soaps.F/u with dermatolog y/allergis t if no improvemen t. [id number] Raymon Ivey MD [facility] Primary [facility] [address] [place] [address] 11/21/2022 14:00:49 11/21/2022 14:31:41 Screening mammography 36841758 Z12.31 Postmenopausal state 764 07927 Z78.0 Essential hypertension 21760410 I10 home bp in excellent control Degenerati on of lumbar intervertebral disc 83882107 M51.36 xray showed levoscolio sis and severe degenerati ve disk diseasehas completed PT and continues home exercisedi scussed option of MRI and referral to pain mgmt/neuro surgeryshe would like to observe for now and f/u prn [id number] Raymon Ivey MD [facility] [address] [facility] [place] [address] 01/22/2023 14:20:40 01/22/2023 16:24:29 [id number] MANISHA Norman [facility] Primary [facility] [address] [place] [address] 02/13/2023 14:45:59 02/13/2023 15:21:01 Cellulitis of face 139895510 L03.211 AcuteArea of erythema and swelling on the left low jaw. Not currently painful and no notable lesion. Previously did a round of antibiotic s with Macrobid for a suspected UTI. Has a sulfa allergy. Will prescribe clindamyci n for likely cellulitis of the face to cover for potential of MRSA. Reviewed diarrhea prevention strategies and recommend adding probiotic- containing foods like yogurt. Low back pain 422388672 M54.50 Chronic,No t worsened and stable at this time. Recommend rest, ice for max of 20 minutes at a time, and NSAIDs at the first sign of pain not when pain gets excruciati ng. No need for further evaluation /treatment at this time. Keep appointmen t with Dr Jackson in may. [id number] Raymon Ivey MD [facility] Primary Care [address] [address] 05/28/2023 10:56:27 05/28/2023 11:46:25 Adult health examination 451463402 Z00.00 mammogram repeat due 02/2024 dexa due 12/2023 check labs has gotten flu vaccine and covid booster 04/04 Screening for disorder 613245094 Z13.9 Screening mammography 24 613250 Z12.31 Postmenopausal state 764 82078 Z78.0 Essential hypertension 12093795 I10 needs improvemen tincrease amlodipine /benazepri l to 10/40 mg dailyf/u in 4 weeks Eruption 357601890 R21 refill given [id number] Raymon Ivey MD [facility] Primary Care [address] [address] 07/15/2023 12:21:31 07/15/2023 13:20:18 Essential hypertension 95350101 I10 needs improvemen tincrease amlodipine /benazepri l to 10/40 mg dailyf/u in 4 weeks update 07/15/23: improved, continue current medcheck labsf/u in 6 weeks Hyperlipidemia 10580759 E78.5 Z79.899 Vitamin D deficiency 347 14205 E55.9 Pain of ri ght shoulder joint 3810682725 6470045 M25.511 home exercise handout given [id number] Raymon Ivey MD [facility] Primary Care [address] [address] 07/19/2023 16:31:50 07/19/2023 16:50:23 [id number] Raymon Ivey MD [facility] Primary Care [address] [place] [address] 09/02/2023 11:27:54 09/02/2023 11:55:59 Pain of right shoulder joint 8213203683 6155370 M25.511 home exercise handout given 09/02/23: ok to continue home exercise and observe for now, she declined ortho Low back pain 165116441 M54.50 call next week if no improvemen t Essential hypertension 63295879 I10 needs improvemen tincrease amlodipine /benazepri l to 10/40 mg dailyf/u in 4 weeks update 07/15/23: improved, continue current medcheck labsf/u in 6 weeks update 09/02/23: doing well, no change neededconc cristian for hypotensio n if we increase her medf/u in 6 months [id number] ELVIS Jauregui [facility] Primary Care [address] [address] 03/10/2024 15:38:27 03/10/2024 17:10:44 Pain of right shoulder joint 9280136758 8148174 M25.511 home exercise handout given in the pastok to continue home exerciseRO M and strength are limited to RUAortho referral givenPT referral given Essential hypertension 72948004 I10 needs improvemen tincrease amlodipine /benazepri l to 10/40 mg dailyf/u in 4 weeks update 07/15/23: improved, continue current medcheck labsf/u in 6 weeks update 09/02/23: doing well, no change neededconc cristian for hypotensio n if we increase her medf/u in 6 months Hyperglycemia 78608084 R 73.9 Generalized rash 3178107 06 R21 [id number] ELVIS Trevizo [facility] Primary Care [address] [place] [address] 08/03/2024 14:49:47 08/03/2024 15:22:41 Adult health examination 220923050 Z00.00 Discussed medication compliance and routine follow up.Discuss ed healthy diet and routine exercise.Halie alfredwed vaccine records and made recommenda tions as needed.Enc ouraged annual eye and dental exams, as well as twice yearly dental cleanings. Will check screening labs as listed below. Screening for disorder 316646779 Z13.9 Essential hypertension 46094989 I10 124/60Cont inue with current medication s.Will check labs as listed below. Aortic valve stenosis 60 624[address]35.[address] once a year Degenerati on of lumbar intervertebral disc 94055312 M51.369 Doing okay at this time. 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 Hyperlipidemia 96512900 E78.5 Z79.899 Will check labs as listed below. Osteopenia 066025468 M85 .80 DEXA UTD (02/2024)C ontinue with current medication s. Vitamin D deficiency 347 88445 E55.9 Will check labs as listed below. 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 Pain of ri ght shoulder joint 5054433460 4867231 M25.511 Recently finished therapy, is suppose to be doing therapy at home but she forgets. Pain of ri ght knee joint 5029658850 36804 M25.561 Doing well at this time. Will contact office with any changes. Body mass index 20-24 - normal 624052700 Z68.22 Weight: 140 poundsBMI: 22.6 Health Concerns Section Related Observation LastModified by Organization Detai ls LastModified Time None Recorded Concern Status LastModified by Organization Details LastModified Time None Recorded Advance Directives Directive Y: Living Will Payers Encounter Date Sequence Insurance Name Policy Number Policy Herrera Covered Member ID Herrera Member ID Guarantor Name 07/15/2023 1 [place] Danielle Russ [id number] Danielle Russ 07/15/2023 2 [place] 106 Nam Halie Russ [id number] Danielle Russ 07/19/2023 1 [place] Russ [id number] Danielle Russ 07/19/2023 2 [place] 106 Nam Reiddtke [id number] Danielle Reiddtke 09/02/2023 1 [place]le Reiddtke [id number] Danielle Reiddtke 09/02/2023 2 [place] 106 Nam Reiddtke [id number] Danielle Reiddtke 03/10/2024 1 [place] Danielle Reiddtke [id number] 7 Danielle [place] Wudtke 03/10/2024 2 [place] 106 Nam Reiddtke [id number] Danielle Reiddtke 08/03/2024 1 [place] Danielle Reiddtke [id number] 7 Danielle Reiddtke 08/03/2024 2 [place] 106 Nam Reiddtke [id number] Danielle Morake Notes Date Note Type Note Provider Name and Address Organization Details Recorded Time 07/15/2023 text/html Here for [facility] exam, home blood pressure are running 160s systolic/70s diastolic. Normal pulse 60-80. update 07/15/23: home blood pressures are 150s or lower systolic and pulse is 60-80. She has been active, going to the gym. No chest pain or sob. She saw cardiology today who decreased her simvastatin from 40 to 20 mg due to joint pain. right shoulder pain x 1 week Raymon Ivey MD [address] [place] [address], [address], [facility] [employer] 08/06/2023 07:49:26 09/02/2023 text/html Here for tl s exam, home blood pressure are running 160s systolic/70s diastolic. Normal pulse 60-80. update 07/15/23: home blood pressures are 150s or lower systolic and pulse is 60-80. She has been active, going to the gym. No chest pain or sob. She saw cardiology today who decreased her simvastatin from 40 to 20 mg due to joint pain. right shoulder pain x 1 week update 09/02/23: right shoulder pain is better, no yet resolved but is better than it was. Her chronic back pain is ok, but yesterday she started in left lower back that comes and goes. No radiation. +stiffness. No weakness. No recent overuse. She did have a longer car ride on Saturday but not sure if that contributed to it. Home blood pressures are stable. Raymon Ivey MD [address], [place], [address], [employer] 09/29/2023 16:26:10 03/10/2024 text/html pt is here for f/u MANISHA Thompson-Dannie [address], [place], [address], [employer] 03/10/2024 16:47:15 08/03/2024 text/html Patient is an 84 year old female that presents to the office for Medicare Wellness. Patient reports she is doing well overall and has no concerns at this time. Patient still struggles with back pain and right arm pain. Patient finished therapy for right arm pain and is suppose to be doing therapy at home however she doesn't always remember. 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
--- OUTSIDE RECORDS SUMMARY | 2024-08-24 12:33 | XMS_ITS | Encounter Summary ---
Author Organization [facility] Care Team Providers Care Master Rigger Name Role Phone Merry Walker MD Primary Care Provide r Dorothy Ivey MD Primary Care Provider + Leyla Montanez NP Primary Care Provider [phone] Encounter Details Date Type Department Care Team (Latest Contact Info) Description 05/09/2018 Orders Only [facility] Provider, MD Ke[place] [address] [place] [address] Social History Tobacco Use Types Packs/Day Years Used Date Smoking Tobacco: Former Smokeless Tobacco: Never Alcohol Use Standard Drinks/Week Comments No 0 (1 standard drink = 0.6 oz pur e alcohol) Comments Unknown Sex and Gender Information Value Date Recorded Sex Assigned at Not on file Legal Sex Female 12:22 AM MANAGER RE[facility]AB Gender Identity Not on file Sexual Orientation Not on file documented as of this encounter Plan of Treatment Not on file documented as of this encounter Procedures Procedure Name Priority Date/Time Associated Diagnosis Comments PROCEDURE - RESULT 04/28/2018 12 :00 AM MANAGER REHAB documented in this encounter Results * PROCEDURE - RESULT (04/28/2018 12:00 AM MANAGER REHAB) Narrative 04/28/2018 12:00 AM MANAGER REHAB Ordered by an unspecified provider. Historical Provider Final Res ult documented in this encounter Visit Diagnoses Not on filedocumented in this encounter Care Teams Master Rigger Relationship Specialty Start Date End Date Merry Walker MD [address] [place] [address] PCP - General 09/04/16 05/24/19 Dorothy Ivey MD [address] [place] [address] PCP - General Family Medicine 05/25/19 07/19/24 Leyla Montanez NP [address] [place] [address] [place] [address] PCP - General Family Medicine 07/20/24 documented as of this encounter
--- OUTSIDE RECORDS SUMMARY | 2024-08-24 12:33 | XMS_ITS | Clinical Summary ---
Author Organization [facility] [address] [facility] [place] [address] Care Team Providers Care Multiple Drill Operator Name Role Phone Leyla Montanez NP Primary Care Provider Allergies Active Allergy Reactions Criticality Noted Date [...] 8 Active vitamins A,C,E-zinc-srinivasan er (ICAPS) 14,320-226-200 nmnh-zb-[id number] capsule Take by mouth. Activ e alendronate [...] age-related cataract 5 Tear film insufficiency 04/02/2011 Encounters Date Type Department Care Team Description 07/20/2024 8:30 AM CDT Office Visit [facility] [address] [place] [address] Shara Ledesma MD Nonrheumatic aortic valve stenosis (Primary Dx); Primary hypertension; Mixed hyperlipidemia from Last 3 Months Surgical History Surgery Date Site/Laterality Comments HYSTERECTOMY CATARACT EXTRACTION Medical History Medical History Date Comments Hypertension Heart murmur Hyperlipidemia Cataracts, bilateral Family History Medical History Relation Name Comments Hypertension Brother Adeel Cancer Father Sheng Heart attack Father Sheng Hypertension Father Sheng Stroke Mother Kristin Vision loss Mother Kristin Relation Name Status Comments Brother Adeel Father Sheng Mother Kristin Social History Tobacco Use Types Packs/Day Years Used Date Smoking Tobacco: Former Smokeless Tobacco: Never Alcohol Use Standard Drinks/Week Comments No 0 (1 standard drink = 0.6 oz pur e alcohol) Comments Unknown Sex and Gender Information Value Date Recorded Sex Assigned at Not on file Legal Sex Female 12:22 AM ROCK [employer] Gender Identity Not on file Sexual Orientation Not on file Obstetrics History Last Filed Vital Signs Vital Sign Reading Time Taken Comments Blood Pressure 134/72 07/20/2024 8:21 AM CDT Pulse 67 07/20/2024 8:21 AM CDT Temperature 36.5 C (97.7 F) 05/16/2020 8:08 AM ROCK BRE[employer]ER Respiratory Rate 16 05/02/2018 8:24 AM ROCK BRE[employer]ER Oxygen Saturation 98% 07/20/2024 8:21 AM CDT Inhaled Oxygen Concentration - - Weight 63.1 kg (139 lb 3.2 oz) 07/20/2024 8:21 A M CDT Height 167.6 cm (5' 6 ) 07/20/2024 8:21 AM CDT Body Mass Index 22.47 07/20/2024 8:21 AM CDT Plan of Treatment Health Maintenance Due Date Last Done Comments Depression Screening 1942 Fall Risk Assessment 1942 Osteoporosis Screening-Bone Density Scan 1942 DTaP/Tdap/Td Vaccine (1 - Tdap) 1953 Hepatitis B Screening 02/26/1960 Well Visit 65+ 2007 Zoster Vaccine (2 of 3) 05/17/2015 03/22/2015, 09/23 Pneumococcal vaccine 65+ (2 of 2 - PPSV23) 09/19/2017 09/19/2016, 03/30/2008 Influenza Vaccine (#1) 2024 9, 02/18/2018, 03/18/2017 Insurance MEDICARE [facility] MEDICARE [facility] FEDERAL Care Teams Multiple Drill Operator Relationship Specialty Start Date End Date Leyla Montanez NP [address] [place] [address] [place] [address] PCP - General Family Medicine 07/20/24
== END 2024-08-24 10:55 | disposition home or self-care (01) ==
LOC: ANHLAB 10:58
PROVIDERS: PCP Nurse Practitioner Family; Visit Provider Nurse Practitioner Family
DX: R73.9 Hyperglycemia, unspecified (principal); I10 Essential (primary) hypertension; E78.5 Hyperlipidemia, unspecified; Z79.899 Other long term (current) drug therapy; E55.9 Vitamin D deficiency, unspecified
CPT/HCPCS: 36415; 80053; 80061; 82248; 82306; 83036; 85025